=== PATIENT | male | born 1985 | race Caucasian/White ===

== ENCOUNTER 2017-02-09 17:36 | Emergency (ER) | payer SELFPAY ==
[~2017-02-09] VITALS: Ht 177.8 cm; Wt 78.0 kg
[2017-02-09] MEDS ORDERED: PERTUSS(ACELL),DIPH,TET VAC/PF 0.5 ML VIAL IM ONE (18:45)
[2017-02-09] MEDS ORDERED: LIDOCAINE HCL BUFFERED 1% W/EPI 1:100,000 20 ML VIAL INJ ONE (18:45)
[2017-02-09] MEDS ORDERED: BACITRACIN 0.9 GM PACKET OINTMENT TP ONE (19:30)
[2017-02-09 19:42] VITALS: BP 126/77
== END 2017-02-09 19:49 | disposition home or self-care (01) ==
LOC: EMS 17:38
DX: S01.91XA Laceration without foreign body of unspecified part of head, initial encounter (principal); W45.8XXA Other foreign body or object entering through skin, initial encounter; Y93.89 Activity, other specified; Y92.810 Car as the place of occurrence of the external cause; Y99.8 Other external cause status
CPT/HCPCS: 12011; 90471; 90715; 99283; J3490